=== PATIENT | male | born 1985 | race Caucasian/White ===

== ENCOUNTER → 2018-04-06 | Outpatient (CLI) | payer OTHER ==
--- NOTE | 2018-04-06 20:55 | CONS ---
CONSULTATION REASON FOR CONSULTATION: Sleep apnea. This is a 33-year-old male patient who comes in for sleep apnea evaluation. His is very worried that he snores and he quits breathing at night. The patient goes to bed at 11:00, wakes up at 4:15 a.m. in the morning, as the patient has to drive to [place], where he works, and he has to be at work at 6:30. 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 He has not fallen asleep while driving back home. On weekends he sleeps between midnight and 8 a.m. in the morning. He smokes and drinks 1 or 2 beers at night. He is a bit tired and sleepy during the day. His current [place] Score is 12. No recent weight gain or weight loss. He sleeps on his abdomen. No nocturia. No nighttime awakenings for chest pain or shortness of breath. No restlessness in the lower extremities. He has a positive family history of CHEIKH. PAST MEDICAL HISTORY: Obesity and hypertension. PAST SURGICAL HISTORY: Cholecystectomy. DRUG ALLERGIES: NOT KNOWN. OUTPATIENT MEDICATION: Lisinopril/hydrochlorothiazide 20/25 one tablet a day. SOCIAL HISTORY: Positive smoker; 1 pack of cigarettes a day. Drinks 1 or 2 beers a day. No history of substance abuse. FAMILY HISTORY: Positive for obstructive sleep apnea in his father. REVIEW OF SYSTEMS: Twelve-point review of systems was done. No recent weight gain. No insomnia. No choking or gasping for air. No grinding of the teeth. No dry mouth. No anxiety or panic attacks. No palpitation. No heartburn. No sweating. No sleepwalking or sleeptalking. No irritability. No depression. No anxiety. No claustrophobia. No sexual dysfunction. PHYSICAL EXAMINATION: BP is 147/98, pulse 92, respirations 16, temperature 98.7, saturation 96% on room air. Height is 5 feet 10 inches. Weight is 238. Neck size is 17 inches. GENERAL APPEARANCE: Calm, comfortable. Head is atraumatic, normocephalic. NECK: Supple. Negative for JVD. No goiter or neck masses. Bilateral tonsillar enlargement. Mallampati class 3. LUNGS: Clear to auscultation. Heart sounds are regular rate and rhythm. Normal S1, S2. No S3, S4. No murmurs. ABDOMEN: Soft, nontender. No organomegaly. EXTREMITIES: No edema. No cyanosis or clubbing. NEUROLOGIC: Awake and alert x3. There is no focal neurological deficit. PSYCHIATRIC: Negative for anxiety or depression. Skin is negative for any wounds or ulceration. IMPRESSION: 1. Obstructive sleep apnea clinically suspected, under investigation. 2. Bilateral tonsillar enlargement. 3. Hypertension, currently on antihypertensive medication with suboptimal control. 4. Obesity with a body mass index of 33.5. 5. Hypersomnia with an [place] score of 12. PLAN: 1. Proceed with a screening polysomnogram. 2. Tight control of blood pressure. 3. Weight loss. 4. Will review the results of the sleep study once available and will make further recommendations accordingly. MMODL / IJN: [id number] /
== END | disposition home or self-care (01) ==
LOC: SLEEP 16:40
PROVIDERS: ATTEND Internal Medicine Critical Care Medicine
DX: G47.10 Hypersomnia, unspecified (principal); I10 Essential (primary) hypertension; E66.9 Obesity, unspecified; Z68.33 Body mass index [BMI] 33.0-33.9, adult; J35.1 Hypertrophy of tonsils; Z79.899 Other long term (current) drug therapy
CPT/HCPCS: 99211

== ENCOUNTER → 2019-01-04 | Outpatient (CLI) | payer BC ==
--- NOTE | 2019-01-04 21:02 | PN ---
PROGRESS NOTE COMPLIANCY CHECK: This is a 33-year-old male patient diagnosed having moderate to severe obstructive sleep apnea with an AHI of 21. The patient was offered APAP therapy and today he is coming in for a compliancy check. The patient's apnea score is worse during REM sleep. The patient has significant sleep fragmentation. On today's evaluation, the patient is feeling better. However he is not seeing major response to the CPAP treatment. I think this is in part related to his suboptimal use and his insufficient sleep syndrome. Based on the compliance data, the patient has been using his CPAP around 20 out of the past 30 days. This gives him a compliancy of 66%. His CPAP use for more than 4 hours is 50%. His AHI while on treatment is down to 0.7, indicating that the patient's treatment has been successful. The patient is on APAP, minimum pressure of 5, maximum pressure of 20. He is averaging around 4.9 hours of CPAP use per night. Leak factor is 28 L/minute and his average pressure used is 13.4. He goes to bed around 11 p.m., wakes up at 4 to 5 in the morning, and he is thought to have insufficiency of sleep. REVIEW OF SYSTEMS: Fourteen-point review of systems was done. Positive findings are mentioned in history of present illness. Weight has been stable. Still fatigued and tired during the day. He is less sleepy. No sinus pain or pressure. No shortness of breath, chest pain, heartburn, abdominal distention or altered mentation. PHYSICAL EXAMINATION: BP is 145/86, pulse 94, respirations 16, temperature 98.2, saturation 95% on room air. Weight is 240. GENERAL APPEARANCE: Calm, comfortable. Head is atraumatic, normocephalic. NECK: Supple. No JVD. No goiter or neck mass. Mallampati class IV. LUNGS: Clear to auscultation. Heart sounds are regular rate and rhythm. Normal S1, S2. No S3, S4. No murmurs. ABDOMEN: Soft, non-tender. No organomegaly. EXTREMITIES: No edema. No cyanosis or clubbing. IMPRESSION: 1. Symptomatic obstructive sleep apnea, moderately severe, with an apnea/hypopnea index of 21, currently on APAP, minimum of 5, maximum 20. 2. Hypersomnia, improved, although it is not completely recovered. 3. Insufficient sleep syndrome. 4. Suboptimal compliance. PLAN: 1. The patient was asked to increase his CPAP use. Would like him to achieve CPAP use for more than 4 hours 70%. He is currently at 50%. 2. Keep the same pressure setting. 3. Continue A[employer]a View medium-sized full-face mask. 4. Use CPAP every night the whole night. 5. Extend sleep hours, knowing that the patient has insufficient sleep syndrome. He needs to sleep at least 7-1/2 hours per night and implement good sleep hygiene measures. 6. We will continue to follow. MMODL / IJN: [id number] /
== END ==
LOC: SLEEP 16:48
PROVIDERS: ATTEND Internal Medicine Critical Care Medicine
DX: G47.33 Obstructive sleep apnea (adult) (pediatric) (principal); F51.12 Insufficient sleep syndrome; R53.83 Other fatigue; Z99.89 Dependence on other enabling machines and devices

== ENCOUNTER → 2019-03-15 | Outpatient (CLI) | payer BC ==
--- NOTE | 2019-03-15 20:08 | PN ---
PROGRESS NOTE This is a 33-year-old male patient coming in for followup. The patient was diagnosed having obstructive sleep apnea and I was working with him to improve his compliance. The patient had an AHI of 21. He was being treated with an APAP and his average pressure utilized was around 13.4 cm of water. He was very close to achieving compliancy. I came to find out that the patient has lost his machine over the past 2 months and is currently on no treatment. He is symptomatic. I think he failed to reach compliancy and Tommy and EWA ended up taking his machine away. He is doing poorly right now. He is somnolent and sleepy and he wants to pursue the treatment again. He weighed 248 pounds and he has gained around 8 pounds since his last evaluation. He also reported insufficient sleep syndrome, for which he was advised to increase the number of hours of sleep. His current [place] score is 11. PHYSICAL EXAMINATION: HIS CURRENT VITALS: BP 143/87, pulse 92, respirations 14, temperature 98.5, saturation 96% on room air. Weight is 248. Height is 5 feet 1 inch, BMI 34.5. GENERAL APPEARANCE: Calm, comfortable. HEAD: Atraumatic, normocephalic. NECK: Supple. There is no JVD. No goiter or neck masses. LUNGS: Diminished breath sounds bilaterally; otherwise clear. HEART: Heart sounds are regular rate and rhythm. Normal S1, S2. No S3, S4. No murmurs. ABDOMEN: Soft, nontender. No organomegaly. EXTREMITIES: No edema, cyanosis or clubbing. IMPRESSION: 1. Symptomatic obstructive sleep apnea, apnea/hypopnea index of 21. The patient lost his CPAP unit. Note that his disease is moderately severe; however, it was worse during REM sleep. 2. Hypersomnia was improving with CPAP therapy. Currently he is sleepy again, as the patient is unable to utilize a CPAP. 3. Insufficient sleep syndrome. PLAN: 1. Increase number of hours of sleep. 2. I donated to this patient a BiPAP unit. I set him up for an auto BiPAP setting, minimum of 4, maximum of , and I was able to donate to him a DreamWear full- face mask. The patient will be encouraged to lose weight. He will see me back in 2-3 months' time to report on his clinical response and compliance. MMODL / IJN: [id number] /
== END | disposition home or self-care (01) ==
LOC: SLEEP 16:36
PROVIDERS: ATTEND Internal Medicine Critical Care Medicine
DX: G47.33 Obstructive sleep apnea (adult) (pediatric) (principal); G47.52 REM sleep behavior disorder; F51.12 Insufficient sleep syndrome; Z91.19 Patient's noncompliance with other medical treatment and regimen

== ENCOUNTER → 2019-06-14 | Outpatient (CLI) | payer BC, OTHER ==
--- NOTE | 2019-06-14 19:51 | PN ---
PROGRESS NOTE Destin is 34, coming in for a compliancy check. The patient has obstructive sleep apnea, AHI of 21, and failed to demonstrate adequate compliance with his APAP. I donated to him a BiPAP machine, setting being minimum of 4, maximum of 20, pressure support of 4. Today he is coming in for a compliancy check. He is wearing a DreamWear medium-sized full-face mask. Seven-day average BiPAP use is 4 hours and 20 minutes. Thirty-day average is 3 hours and 18 minutes. His BiPAP pressures are 14.7/11.9, and the patient is using his DreamWear full-face mask. Clinically he is benefitting and he wants to use it for a longer period of time to get more benefit out of it. His weight fluctuates. After gaining around 8 pounds, he lost another 8 pounds and is currently down to 240 pounds. No snoring while on the BiPAP unit. His [place] score currently is down to 3, as the patient is feeling less sleepy and tired during the day. REVIEW OF SYSTEMS: Fourteen-point review of systems was done. Positive findings were all mentioned above in the history of present illness. No chest pain. No headache. No shortness of breath. No cough or sputum production. Sleepiness has improved. PHYSICAL EXAMINATION: VITAL SIGNS: BP is 166/86, pulse 88, respirations 16, temperature 98.0, saturation 94% on room air. Height is 5 feet 10 inches, weight 240. BMI is 35.0. GENERAL APPEARANCE: Calm and comfortable. HEAD: Atraumatic, normocephalic. NECK: Supple. Not stiff. Mallampati class IV. There is no goiter or neck masses. LUNGS: Clear to auscultation. HEART: Heart sounds are regular rate and rhythm. Normal S1, S2. No S3, S4. No murmurs. ABDOMEN: Soft, nontender. No organomegaly. EXTREMITIES: No edema. No cyanosis or clubbing. NEUROLOGIC: He is awake and alert. No focal neurological deficit. PSYCHIATRIC: Negative for anxiety or depression. IMPRESSION: 1. Symptomatic obstructive sleep apnea with an apnea/hypopnea index of 21, currently on auto BiPAP treatment. 2. Hypersomnia, improved. [place] score is down to 3. 3. Insufficient sleep syndrome. Would like to increase average number of hours of sleep that the patient takes on a daily basis. PLAN: 1. Encourage further compliancy with his BiPAP. 2. Continue the DreamWear full-face mask, medium size. 3. Improve CPAP compliancy. Would like to achieve at least 5-6 hours of BiPAP use per night. 4. Encourage further weight loss. 5. See me back in a year's time in followup, earlier if needed. MMODL / IJN: [id number] /
== END | disposition home or self-care (01) ==
LOC: SLEEP 16:28
PROVIDERS: ATTEND Internal Medicine Critical Care Medicine
DX: G47.33 Obstructive sleep apnea (adult) (pediatric) (principal); F51.12 Insufficient sleep syndrome; Z99.89 Dependence on other enabling machines and devices